=== PATIENT | female | born 1965 | race Caucasian/White ===

== ENCOUNTER → 2017-05-27 | Outpatient (REF) | payer OTHER | LOC: M LAB REF 08:51 | PROVIDERS: ATTEND Physician Assistant | DX: R10.9 Unspecified abdominal pain (principal) ==

== ENCOUNTER → 2017-05-28 | Outpatient (REF) | payer OTHER | LOC: M SFHCWAGY 15:25 | PROVIDERS: ATTEND Nurse Practitioner Women's Health | DX: N93.9 Abnormal uterine and vaginal bleeding, unspecified (principal) ==

== ENCOUNTER → 2017-05-31 | Outpatient (CLI) | payer BC ==
--- NOTE | 2017-05-31 10:55 | REP ---
PELVIC ULTRASOUND:: Real-time sonographic evaluation of the pelvis is performed utilizing transabdominal and endovaginal technique. The patient has had a prior hysterectomy. Urinary bladder measures 11.5 x 10.0 x 7.9 cm. Right ovary could not be visualized. The left ovary appears normal in size an echotexture, measuring 2.1 x 1.4 x 2.2 cm. There is blood flow seen in the left ovary with duplex Doppler evaluation with no torsion, RI 0.50. Nabothian cysts are seen in the region of the cervix, largest 1.4 cm. IMPRESSION: Status post hysterectomy. No evidence of mass or free fluid.
== END ==
LOC: M WHC 09:04
PROVIDERS: ATTEND Nurse Practitioner Women's Health
DX: N93.9 Abnormal uterine and vaginal bleeding, unspecified (principal); N94.9 Unspecified condition associated with female genital organs and menstrual cycle; Z90.711 Acquired absence of uterus with remaining cervical stump

== ENCOUNTER → 2018-05-07 | Outpatient (CLI) | payer BC, OTHER ==
[2018-05-07 12:29] LABS: ALBUMIN 3.7 GM/DL (3.2-5.2); ALKALINE PHOSPHATASE 88 U/L (45-117); ALT/SGPT 37 U/L (12-78); ANION GAP 5 MEQ/L (8-16); AST/SGOT 15 U/L (7-37); BILIRUBIN,TOTAL 0.6 MG/DL (0.2-1.0); BLOOD UREA NITROGEN 18 MG/DL (7-18); CALCIUM LEVEL 9.1 MG/DL (8.5-10.1); CARBON DIOXIDE LEVEL 30 MEQ/L (21-32); CHLORIDE LEVEL 106 MEQ/L (98-107); CREATININE FOR GFR 1.08 MG/DL (0.55-1.30); GLOMERULAR FILTRATION RATE 57.2 (>51); GLUCOSE, FASTING 99 MG/DL (70-100); POTASSIUM SERUM 4.7 MEQ/L (3.5-5.1); RHEUMATOID FACTOR QUANT < 10.0 IU/ML (<15.0); SODIUM LEVEL 141 MEQ/L (136-145); TOTAL PROTEIN 7.4 GM/DL (6.4-8.2)
[2018-05-07 13:14] LABS: ERYTHROCYTE SEDIMENTATION RATE 44 mm/hr (0-30)
[2018-05-08 14:20] LABS: ANTINUCLEAR ANTIBODIES DIRECT Negative (Negative)
== END ==
LOC: M WUC 08:33
DX: M51.37 Other intervertebral disc degeneration, lumbosacral region (principal); M50.30 Other cervical disc degeneration, unspecified cervical region
CPT/HCPCS: 80053

== ENCOUNTER → 2019-03-31 | Outpatient (REF) | LOC: M LAB LCGH 08:41 | PROVIDERS: ATTEND Nurse Practitioner Family | DX: L91.8 Other hypertrophic disorders of the skin (principal); R23.8 Other skin changes ==

== ENCOUNTER → 2019-07-30 | Outpatient (REF) | payer BC ==
[2019-07-30 13:23] LABS: INFLUENZA A AMPLIFICATION NEGATIVE (NEGATIVE); INFLUENZA B AMPLIFICATION NEGATIVE (NEGATIVE)
== END ==
LOC: M LAB REF 12:15
PROVIDERS: ATTEND Physician Assistant
DX: J10.1 Influenza due to other identified influenza virus with other respiratory manifestations (principal)

== ENCOUNTER → 2020-05-17 | Outpatient (CLI) | payer OTHER | LOC: M LABSMTC 14:07 | PROVIDERS: ATTEND Pediatrics | DX: Z11.59 Encounter for screening for other viral diseases (principal) ==

== ENCOUNTER 2021-11-07 13:01 | Emergency (ER) | payer BC, OTHER ==
[~2021-11-07] VITALS: Ht 162.6 cm; Wt 138.3 kg
[2021-11-07 17:24] LABS: BASO % 0.2 % (0.0-1.0); EOS % 0.1 % (0.0-3.0); HEMATOCRIT 44.7 % (36.0-47.0); HEMOGLOBIN 14.6 g/dl (12.0-15.5); LYMPH # 2.3 10^3/uL (1.5-5.0); LYMPH % 18.1 % (24.0-44.0); MEAN CORPUSCULAR HEMOGLOBIN 31.1 pg (27.0-33.0); MEAN CORPUSCULAR HGB CONC 32.7 g/dl (32.0-36.5); MEAN CORPUSCULAR VOLUME 95.1 fl (80.0-96.0); MONO # 0.4 10^3/uL (0.0-0.8); MONO % 2.9 % (2.0-8.0); NEUTROPHILS % 77.6 % (36.0-66.0); PLATELET COUNT, AUTOMATED 228 10^3/uL (150-450); WHITE BLOOD COUNT 12.9 10^3/uL (4.0-10.0)
[2021-11-07 18:04] LABS: ALBUMIN 3.9 GM/DL (3.2-5.2); BILIRUBIN,DIRECT 0.3 MG/DL (0.0-0.2); BILIRUBIN,TOTAL 0.9 MG/DL (0.2-1.0); FREE T4 1.11 NG/DL (0.76-1.46); THYROID STIMULATING HORMONE 1.39 uIU/ML (0.358-3.740); TOTAL PROTEIN 7.4 GM/DL (6.4-8.2)
[2021-11-07] MEDS ORDERED: FUROSEMIDE 40MG/4ML VIAL (J1940) IV ONE (18:25)
[2021-11-07] MEDS ORDERED: CARVedilol 12.5 MG TAB PO ONE (18:25)
[2021-11-07] MEDS ORDERED: PERCOCET 5MG/325MG TAB PO ONE (18:30)
[2021-11-07 18:45] VITALS: BP 184/79
[2021-11-07] MEDS ORDERED: ACETAMINOPHEN TAB 650MG DOSE (2X325MG) PO ONE (20:40)
[2021-11-07 20:46] VITALS: BP 164/86
[2021-11-07] MEDS ORDERED: CORE12.5 PO (21:00)
[2021-11-07] MEDS ORDERED: CHLO125TA PO (21:01)
[2021-11-07] MEDS ORDERED: SPIR-10 PO (21:02)
[2021-11-07] MEDS ORDERED: PERC5TAB12 PO (21:02)
== END 2021-11-07 21:27 | disposition home or self-care (01) ==
LOC: M ED 13:01
DX: I10 Essential (primary) hypertension (principal); D31.91 Benign neoplasm of unspecified part of right eye; Z88.0 Allergy status to penicillin; Z79.52 Long term (current) use of systemic steroids; Z79.83 Long term (current) use of bisphosphonates
CPT/HCPCS: 71045; 80047; 80076; 83690; 83880; 84439; 84443; 84484; 85025; 93005; 93041; 94760; 96374; 99285; J1940

== ENCOUNTER → 2021-12-25 | Outpatient (CLI) | payer BC, OTHER ==
[~2021-12-25] MED LIST: CHLO125TA PO; CORE12.5 PO; ISOVUE-370 76% 100ML VIAL As Ordered ONE; PERC5TAB12 PO; SPIR-10 PO
== END ==
LOC: M RAD 08:15
PROVIDERS: ATTEND Internal Medicine Cardiovascular Disease
DX: R91.1 Solitary pulmonary nodule (principal); R06.02 Shortness of breath
CPT/HCPCS: 71275; Q9967

== ENCOUNTER → 2021-12-26 | Outpatient (CLI) | payer BC, OTHER ==
[~2021-12-26] MED LIST changes: -ISOVUE-370 76% 100ML VIAL As Ordered ONE
== END ==
LOC: M CARPUL 14:29
PROVIDERS: ATTEND Internal Medicine Cardiovascular Disease
DX: R06.02 Shortness of breath (principal)

== ENCOUNTER → 2022-04-03 | Outpatient (REF) | LOC: M PLAIMG 14:55 | PROVIDERS: ATTEND Internal Medicine | DX: M25.512 Pain in left shoulder (principal) ==

== ENCOUNTER 2022-06-20 17:19 | Inpatient (IN) | payer BC, OTHER ==
[~2022-06-20] VITALS: Ht 162.6 cm; Wt 140.5 kg
[2022-06-20] MEDS ORDERED: FOLI1TAB11 (17:40)
[2022-06-20] MEDS ORDERED: NITR100C2 (17:40)
[2022-06-20] MEDS ORDERED: HYDR-3490 (17:40)
[2022-06-20] MEDS ORDERED: METH2.5T48 (17:40)
[2022-06-20] MEDS ORDERED: ALLO100T (17:40)
[2022-06-20] MEDS ORDERED: OMEP40CA5 (17:40)
[2022-06-20] MEDS ORDERED: FLUC100T3 (17:40)
[2022-06-20] MEDS ORDERED: TRAM50TA2 (17:40)
[2022-06-20] MEDS ORDERED: FLUTISP (17:40)
[2022-06-20] MEDS ORDERED: TRAZ-252 (17:40)
[2022-06-20] MEDS ORDERED: GABA-1171 (17:40)
[2022-06-20] MEDS ORDERED: FURO20TA2 (17:40)
[2022-06-20] MEDS ORDERED: ERGO500029 (17:40)
[2022-06-20] MEDS ORDERED: PRED20TA (17:40)
[2022-06-20] MEDS ORDERED: ONDA4TAB6 (17:40)
[2022-06-20] MEDS ORDERED: AMLO-360 (17:40)
[2022-06-20] MEDS ORDERED: NYST-38 (17:40)
[2022-06-20] MEDS ORDERED: LEVOTAB10 (17:40)
[2022-06-20] MEDS ORDERED: FAMO40TA3 (17:40)
[2022-06-20] MEDS ORDERED: MYRB25TA (17:40)
[2022-06-20 18:50] LABS: RSV AMPLIFICATION NEGATIVE (NEGATIVE)
[2022-06-20] MEDS ORDERED: LEVEMIR (INSULIN DETEMIR) 1 UNITS/0.01ML SC SCH (21:00)
[2022-06-20 22:08] LABS: BASO % 0.2 % (0.0-1.0); EOS % 0.2 % (0.0-3.0); HEMATOCRIT 32.7 % (36.0-47.0); HEMOGLOBIN 10.5 g/dl (12.0-15.5); LYMPH # 1.5 10^3/uL (1.5-5.0); LYMPH % 14.5 % (24.0-44.0); MEAN CORPUSCULAR HEMOGLOBIN 32.6 pg (27.0-33.0); MEAN CORPUSCULAR HGB CONC 32.1 g/dl (32.0-36.5); MEAN CORPUSCULAR VOLUME 101.6 fl (80.0-96.0); MONO # 0.5 10^3/uL (0.0-0.8); MONO % 4.9 % (2.0-8.0); NEUTROPHILS % 78.3 % (36.0-66.0); PLATELET COUNT, AUTOMATED 178 10^3/uL (150-450); RED BLOOD COUNT 3.22 10^6/uL (4.00-5.40); WHITE BLOOD COUNT 10.2 10^3/uL (4.0-10.0)
[2022-06-20 23:15] LABS: BLOOD UREA NITROGEN 65 MG/DL (9-23); CALCIUM LEVEL 9.5 MG/DL (8.5-10.1); CARBON DIOXIDE LEVEL 29 MMOL/L (20-31); CHLORIDE LEVEL 91 MMOL/L (98-107); CREATININE FOR GFR 2.65 MG/DL (0.55-1.30); GLUCOSE, FASTING 501 MG/DL (60-100); POTASSIUM SERUM 4.9 MMOL/L (3.5-5.1); SODIUM LEVEL 131 MMOL/L (136-145)
[2022-06-20] MEDS ORDERED: NS 1,000 ML IV ONE (23:35)
[2022-06-20 23:59] LABS: HEMOGLOBIN A1c 11.7 % (4.0-6.0)
[2022-06-21 00:02] LABS: ALBUMIN 3.4 G/DL (3.2-5.2); ALKALINE PHOSPHATASE 110 U/L (46-116); ALT/SGPT 34 U/L (7.0-40); AST/SGOT 15 U/L (<34); BILIRUBIN,DIRECT 0.1 MG/DL (<0.4); BILIRUBIN,TOTAL 0.5 MG/DL (0.3-1.2); TOTAL PROTEIN 6.3 G/DL (5.7-8.2)
[2022-06-21] MEDS ORDERED: HumuLIN R (REGULAR) INSULIN (NovoLIN R) **100U/ML** PER UNIT IV ONE (00:10)
[2022-06-21] MEDS ORDERED: LIDOCAINE 2% 5ML JELLY UROJET TOP ONE (00:15)
[2022-06-21] MEDS: NS 1,000 ML IV SCH ×3 (00:25→09:53)
[2022-06-21 01:09] LABS: CK-MB VALUE MASS < 1.0 NG/ML (<3.6)
[2022-06-21 01:15] LABS: CPK CREATINE PHOSPHOKINASE 107 U/L (34-145); MB/CK RELATIVE INDEX 0.93 (< OR =4)
[2022-06-21] MEDS ORDERED: INSULIN LISPRO (NovoLOG) PER UNIT SC STA (02:08)
[2022-06-21] MEDS ORDERED: GLUCAGON INJ 1MG VIAL SC PRN (02:35)
[2022-06-21] MEDS ORDERED: DEXTROSE 50% 50ML SYRINGE IV PRN (02:35)
[2022-06-21] MEDS ORDERED: GLUCOSE 4GM CHEW TABLET PO PRN (02:35)
[2022-06-21] MEDS ORDERED: PENC1CR TOP (03:07)
[2022-06-21] MEDS ORDERED: LEVOTAB10 PO (03:07)
[2022-06-21] MEDS ORDERED: FLUT15.820 (03:07)
[2022-06-21] MEDS ORDERED: NYST-13 TOP (03:07)
[2022-06-21] MEDS ORDERED: FOLI1TAB11 PO (03:07)
[2022-06-21] MEDS ORDERED: OMEP40CA5 PO (03:07)
[2022-06-21] MEDS ORDERED: PRED20TA PO (03:07)
[2022-06-21] MEDS ORDERED: CARV12.5 PO (03:07)
[2022-06-21] MEDS ORDERED: TUMS500C PO (03:07)
[2022-06-21] MEDS ORDERED: FURO20TA2 PO (03:07)
[2022-06-21] MEDS ORDERED: SPIR-10 PO (03:07)
[2022-06-21] MEDS ORDERED: HYDR-3490 PO (03:07)
[2022-06-21] MEDS ORDERED: NYST-38 SSP (03:07)
[2022-06-21] MEDS ORDERED: MYRB25TA PO (03:07)
[2022-06-21] MEDS ORDERED: METH2.5T48 PO (03:07)
[2022-06-21] MEDS ORDERED: AMLO-360 PO (03:07)
[2022-06-21] MEDS ORDERED: TRAM50TA2 PO (03:07)
[2022-06-21] MEDS ORDERED: ONDA4TAB6 PO (03:07)
[2022-06-21] MEDS ORDERED: FAMO40TA3 PO (03:07)
[2022-06-21] MEDS ORDERED: ERGO500029 PO (03:07)
[2022-06-21] MEDS ORDERED: SIME80TA16 PO (03:07)
[2022-06-21] MEDS ORDERED: VITA1TAB61 PO (03:07)
[2022-06-21] MEDS ORDERED: MACR100C43 PO (03:07)
[2022-06-21] MEDS ORDERED: BENZ200C70 PO (03:07)
[2022-06-21] MEDS ORDERED: ALLO100T PO (03:07)
[2022-06-21] MEDS ORDERED: GABA-1171 PO (03:07)
[2022-06-21] MEDS ORDERED: TRAZ-252 PO (03:07)
[2022-06-21] MEDS ORDERED: ACET-897 PO (03:08)
[2022-06-21] MEDS ORDERED: HOME MED LIST COMPLETE! XX SCH (03:10)
[2022-06-21] MEDS ORDERED: ONDANSETRON 4MG ORAL DISINTEGRATING TAB PO PRN (04:05)
[2022-06-21] MEDS ORDERED: NYSTATIN CREAM 15GM TOP PRN (04:05)
[2022-06-21] MEDS ORDERED: ACETAMINOPHEN 500 MG TAB PO PRN (04:05)
[2022-06-21] MEDS ORDERED: SIMETHICONE 80MG CHEW TAB PO PRN (04:05)
[2022-06-21] MEDS ORDERED: PENCICLOVIR 1% CREAM 5GM TOP PRN (04:05)
[2022-06-21] MEDS: traMADol 50 MG TAB PO PRN ×2 (05:41→21:19)
[2022-06-21] MEDS: HEPARIN SOD (PORCINE) 5000UNITS/ML 1ML VIAL/SYRINGE SC SCH ×3 (05:41→21:19)
[2022-06-21 07:31] LABS: ALBUMIN 3.2 G/DL (3.2-5.2); BILIRUBIN,TOTAL 0.5 MG/DL (0.3-1.2); CALCIUM LEVEL 9.1 MG/DL (8.5-10.1); CREATININE FOR GFR 1.89 MG/DL (0.55-1.30); GLOMERULAR FILTRATION RATE 29.5 (>51); POTASSIUM SERUM 4.7 MMOL/L (3.5-5.1); TOTAL PROTEIN 6.2 G/DL (5.7-8.2)
[2022-06-21 08:00] VITALS: BP 116/69
[2022-06-21] MEDS: NYSTATIN 500,000U/5ML SUSP UDC SSP SCH ×2 (09:00→21:17)
[2022-06-21] MEDS ORDERED: SPIRONOLACTONE 12.5MG PER 1/2 TABLET PO SCH (09:00)
[2022-06-21] MEDS: predniSONE 20 MG TAB PO SCH (09:43)
[2022-06-21] MEDS: CARVedilol 12.5 MG TAB PO SCH ×2 (09:44→22:39)
[2022-06-21] MEDS: FAMOTIDINE 20 MG TAB PO SCH (09:45)
[2022-06-21] MEDS: CALCIUM CARBONATE 500 MG CHEW U/D PO SCH ×4 (09:46→21:17)
[2022-06-21] MEDS: INSULIN LISPRO (NovoLOG) PER UNIT SC SCH ×4 (09:49→21:20)
[2022-06-21] MEDS: GABAPENTIN 100 MG CAP PO SCH ×3 (09:53→21:17)
[2022-06-21] MEDS ORDERED: ONDANSETRON 4MG 2ML VIAL IV PRN (10:10)
[2022-06-21] MEDS ORDERED: FUROSEMIDE 100MG/10ML VIAL IV ONE (11:15)
[2022-06-21] MEDS: LEVEMIR (INSULIN DETEMIR) 1 UNITS/0.01ML SC SCH ×2 (11:52→21:20)
[2022-06-21] MEDS ORDERED: METHOTREXATE 2.5 MG TAB (J8610 PER 2.5MG) PO SCH (12:00)
[2022-06-21 14:00] VITALS: BP 123/76
[2022-06-21 17:20] VITALS: BP 126/71
[2022-06-21 20:40] VITALS: BP 105/66
[2022-06-21] MEDS: allopurinoL 100 MG TAB PO SCH (21:17)
[2022-06-21] MEDS: traZODone 50 MG TAB PO SCH (21:17)
[2022-06-21] MEDS: FLUTICASONE PROP 0.05% NASAL SPRAY 16 GM (FLONASE) NARES SCH (23:19)
[2022-06-21] MEDS: OMEPRAZOLE 20MG CAP PO SCH (23:19)
[2022-06-21] MEDS: ALBUTEROL SULFATE 2.5MG/0.5ML INH NEB SOLN NEB SCH (23:26)
[2022-06-22 05:58] VITALS: BP 134/77
[2022-06-22] MEDS: HEPARIN SOD (PORCINE) 5000UNITS/ML 1ML VIAL/SYRINGE SC SCH ×3 (06:28→22:07)
[2022-06-22 06:50] LABS: HEMATOCRIT 32.9 % (36.0-47.0); HEMOGLOBIN 10.7 g/dl (12.0-15.5); MEAN CORPUSCULAR HEMOGLOBIN 33.1 pg (27.0-33.0); MEAN CORPUSCULAR HGB CONC 32.5 g/dl (32.0-36.5); MEAN CORPUSCULAR VOLUME 101.9 fl (80.0-96.0); PLATELET COUNT, AUTOMATED 181 10^3/uL (150-450); RED BLOOD COUNT 3.23 10^6/uL (4.00-5.40); WHITE BLOOD COUNT 8.5 10^3/uL (4.0-10.0)
[2022-06-22] MEDS: ALBUTEROL SULFATE 2.5MG/0.5ML INH NEB SOLN NEB SCH ×2 (07:11)
[2022-06-22 07:19] LABS: ALBUMIN 3.3 G/DL (3.2-5.2); BILIRUBIN,TOTAL 0.5 MG/DL (0.3-1.2); CALCIUM LEVEL 9.9 MG/DL (8.5-10.1); CREATININE FOR GFR 1.45 MG/DL (0.55-1.30); GLOMERULAR FILTRATION RATE 40.1 (>51); POTASSIUM SERUM 4.1 MMOL/L (3.5-5.1); TOTAL PROTEIN 6.4 G/DL (5.7-8.2)
[2022-06-22] MEDS: LEVEMIR (INSULIN DETEMIR) 1 UNITS/0.01ML SC SCH ×2 (08:29→22:03)
[2022-06-22] MEDS: INSULIN LISPRO (NovoLOG) PER UNIT SC SCH ×4 (08:29→22:02)
[2022-06-22] MEDS: NYSTATIN 500,000U/5ML SUSP UDC SSP SCH ×2 (08:29→22:02)
[2022-06-22] MEDS: FAMOTIDINE 20 MG TAB PO SCH (08:30)
[2022-06-22] MEDS: CALCIUM CARBONATE 500 MG CHEW U/D PO SCH ×4 (08:30→22:00)
[2022-06-22] MEDS: predniSONE 20 MG TAB PO SCH (08:31)
[2022-06-22] MEDS: GABAPENTIN 100 MG CAP PO SCH ×3 (08:32→22:01)
[2022-06-22] MEDS: CARVedilol 12.5 MG TAB PO SCH ×2 (08:33→22:01)
[2022-06-22] MEDS: FOLIC ACID 1MG TAB PO SCH (08:33)
[2022-06-22] MEDS: OMEPRAZOLE 20MG CAP PO SCH ×2 (08:33→22:00)
[2022-06-22] MEDS: FLUTICASONE PROP 0.05% NASAL SPRAY 16 GM (FLONASE) NARES SCH ×2 (08:35→22:04)
[2022-06-22] MEDS ORDERED: METHOTREXATE 2.5 MG TAB (J8610 PER 2.5MG) PO SCH (09:00)
[2022-06-22] MEDS ORDERED: ALBUTEROL SULFATE 2.5MG/0.5ML INH NEB SOLN NEB PRN (09:10)
[2022-06-22] MEDS: traMADol 50 MG TAB PO PRN (12:35)
[2022-06-22 14:00] VITALS: BP 136/61
[2022-06-22] MEDS: COMBIVENT RESPIMAT 100-20MCG INHALER 4GM INH SCH ×2 (15:27→19:50)
[2022-06-22 20:00] VITALS: BP 129/63
[2022-06-22] MEDS: allopurinoL 100 MG TAB PO SCH (22:00)
[2022-06-22] MEDS: traZODone 50 MG TAB PO SCH (22:01)
[2022-06-23] MEDS ORDERED: SENOKOT S TAB PO PRN (00:50)
[2022-06-23] MEDS: COMBIVENT RESPIMAT 100-20MCG INHALER 4GM INH SCH ×3 (01:00→13:22)
[2022-06-23] MEDS: HEPARIN SOD (PORCINE) 5000UNITS/ML 1ML VIAL/SYRINGE SC SCH ×2 (05:43→14:37)
[2022-06-23] MEDS: BENZONATATE 100MG CAPSULE PO PRN ×2 (05:43→14:36)
[2022-06-23] MEDS: traMADol 50 MG TAB PO PRN (05:44)
[2022-06-23 06:00] VITALS: BP 132/85
[2022-06-23 07:12] LABS: HEMATOCRIT 32.2 % (36.0-47.0); HEMOGLOBIN 10.2 g/dl (12.0-15.5); MEAN CORPUSCULAR HEMOGLOBIN 32.3 pg (27.0-33.0); MEAN CORPUSCULAR HGB CONC 31.7 g/dl (32.0-36.5); MEAN CORPUSCULAR VOLUME 101.9 fl (80.0-96.0); PLATELET COUNT, AUTOMATED 172 10^3/uL (150-450); RED BLOOD COUNT 3.16 10^6/uL (4.00-5.40); WHITE BLOOD COUNT 7.7 10^3/uL (4.0-10.0)
[2022-06-23 07:38] LABS: BILIRUBIN,TOTAL 0.5 MG/DL (0.3-1.2); CALCIUM LEVEL 9.5 MG/DL (8.5-10.1); CREATININE FOR GFR 1.25 MG/DL (0.55-1.30); GLOMERULAR FILTRATION RATE 47.5 (>51); TOTAL PROTEIN 6.1 G/DL (5.7-8.2)
[2022-06-23 08:00] VITALS: BP 118/71
[2022-06-23] MEDS: CALCIUM CARBONATE 500 MG CHEW U/D PO SCH ×2 (08:57→12:13)
[2022-06-23] MEDS: GABAPENTIN 100 MG CAP PO SCH ×2 (08:58→15:37)
[2022-06-23] MEDS: OMEPRAZOLE 20MG CAP PO SCH (08:58)
[2022-06-23] MEDS: FAMOTIDINE 20 MG TAB PO SCH (08:58)
[2022-06-23 08:59] VITALS: BP 118/71
[2022-06-23] MEDS: predniSONE 20 MG TAB PO SCH (08:59)
[2022-06-23] MEDS: FOLIC ACID 1MG TAB PO SCH (08:59)
[2022-06-23] MEDS: CARVedilol 12.5 MG TAB PO SCH (08:59)
[2022-06-23] MEDS ORDERED: DOCUSATE SODIUM 100MG CAPSULE PO SCH (09:00)
[2022-06-23] MEDS: FLUTICASONE PROP 0.05% NASAL SPRAY 16 GM (FLONASE) NARES SCH (09:00)
[2022-06-23] MEDS ORDERED: MIRALAX *UNIT DOSE* 17GM PACKET PO SCH (09:00)
[2022-06-23] MEDS ORDERED: LEVEMIR (INSULIN DETEMIR) 1 UNITS/0.01ML SC SCH ×2 (09:00→21:00)
[2022-06-23] MEDS: NYSTATIN 500,000U/5ML SUSP UDC SSP SCH (09:00)
[2022-06-23] MEDS: INSULIN LISPRO (NovoLOG) PER UNIT SC SCH ×3 (09:02→17:07)
[2022-06-23] MEDS ORDERED: INSU100I48 SQ ×2 (11:08→12:06)
[2022-06-23] MEDS ORDERED: GLUC1TES2 XX (11:08)
[2022-06-23] MEDS ORDERED: PEN1MIS22 SC (11:08)
[2022-06-23] MEDS ORDERED: BLOOKIT21 XX (11:08)
[2022-06-23] MEDS ORDERED: LANC30MI XX (11:08)
[2022-06-23] MEDS ORDERED: ALCOPAD25 TOP (11:08)
[2022-06-23 12:00] VITALS: BP 116/72
[2022-06-23] MEDS ORDERED: GABA-282 PO (12:06)
[2022-06-23] MEDS ORDERED: COMBAER6 INH (12:06)
[2022-06-23] MEDS ORDERED: ADME100I2 SC (12:06)
[2022-06-23] MEDS ORDERED: VITAMIN D 50,000 UNITS CAPSULE (ERGOCALCIFEROL 1.25MG) PO SCH (13:00)
[2022-06-23 14:00] VITALS: BP 116/72
[2022-06-26] MEDS ORDERED: GABAPENTIN 300 MG CAP PO SCH (09:00)
== END 2022-06-23 18:26 | disposition home or self-care (01) | DRG 469 ==
LOC: M ED 17:19 → M ED INP 06-21 02:06 → M MSPAV 06-21 17:17
PROVIDERS: ADMIT Family Medicine; ATTEND Internal Medicine Nephrology
PROC: B246ZZZ Ultrasonography of Right and Left Heart (ICD-10-PCS; principal; 2022-06-23)
DX: N17.9 Acute kidney failure, unspecified (principal); M31.30 Wegener's granulomatosis without renal involvement; E11.40 Type 2 diabetes mellitus with diabetic neuropathy, unspecified; I11.0 Hypertensive heart disease with heart failure; I50.9 Heart failure, unspecified; E11.65 Type 2 diabetes mellitus with hyperglycemia; E66.01 Morbid (severe) obesity due to excess calories; Z68.43 Body mass index [BMI] 50.0-59.9, adult; I10 Essential (primary) hypertension; J45.909 Unspecified asthma, uncomplicated; J32.9 Chronic sinusitis, unspecified; N39.41 Urge incontinence; H46.9 Unspecified optic neuritis; D64.9 Anemia, unspecified; M19.90 Unspecified osteoarthritis, unspecified site; M10.9 Gout, unspecified; K21.9 Gastro-esophageal reflux disease without esophagitis; R91.1 Solitary pulmonary nodule; H91.90 Unspecified hearing loss, unspecified ear; G47.33 Obstructive sleep apnea (adult) (pediatric); Z90.49 Acquired absence of other specified parts of digestive tract; Z90.79 Acquired absence of other genital organ(s); Z87.891 Personal history of nicotine dependence; Z20.822 Contact with and (suspected) exposure to COVID-19; Z79.52 Long term (current) use of systemic steroids; Z79.899 Other long term (current) drug therapy; Z88.1 Allergy status to other antibiotic agents; B96.20 Unspecified Escherichia coli [E. coli] as the cause of diseases classified elsewhere

== ENCOUNTER → 2022-07-09 | Outpatient (CLI) | payer BC, OTHER ==
[~2022-07-09] MED LIST changes: +ACET-897 PO; +ADME100I2 SC; +ALCOPAD25 TOP; +ALLO100T; +ALLO100T PO; +AMLO-360; +AMLO-360 PO; +BENZ200C70 PO; +BLOOKIT21 XX; +CARV12.5 PO; +COMBAER6 INH; +ERGO500029; +ERGO500029 PO; +FAMO40TA3; +FAMO40TA3 PO; +FLUC100T3; +FLUT15.820; +FLUTISP; +FOLI1TAB11; +FOLI1TAB11 PO; +FURO20TA2; +FURO20TA2 PO; +GABA-1171; +GABA-1171 PO; +GABA-282 PO; +GLUC1TES2 XX; +HYDR-3490; +HYDR-3490 PO; +INSU100I48 SQ; +LANC30MI XX; +LEVOTAB10; +LEVOTAB10 PO; +MACR100C43 PO; +METH2.5T48; +METH2.5T48 PO; +MYRB25TA; +MYRB25TA PO; +NITR100C2; +NYST-13 TOP; +NYST-38; +NYST-38 SSP; +OMEP40CA5; +OMEP40CA5 PO; +ONDA4TAB6; +ONDA4TAB6 PO; +PEN1MIS22 SC; +PENC1CR TOP; +PRED20TA; +PRED20TA PO; +SIME80TA16 PO; +TRAM50TA2; +TRAM50TA2 PO; +TRAZ-252; +TRAZ-252 PO; +TUMS500C PO; +VITA1TAB61 PO
== END ==
LOC: M PLAIMG 12:56
PROVIDERS: ATTEND Nurse Practitioner Adult Health
DX: R91.8 Other nonspecific abnormal finding of lung field (principal)

== ENCOUNTER → 2022-09-05 | Outpatient (REF) | payer OTHER ==
[2022-09-05 18:17] LABS: CREATININE, URINE 22.4 MG/DL; MAU/CREAT RATIO 53.5 MCG/MG (0.0-30.0)
== END ==
LOC: M LAB REF 16:54
PROVIDERS: ATTEND Nurse Practitioner Family
DX: E11.65 Type 2 diabetes mellitus with hyperglycemia (principal)

== ENCOUNTER → 2022-11-15 | Outpatient (CLI) | payer BC, OTHER ==
[~2022-11-15] MED LIST changes: +FLUT50SP17; -FLUTISP
== END ==
LOC: M PLAIMG 08:56
PROVIDERS: ATTEND Nurse Practitioner Adult Health
DX: J98.11 Atelectasis (principal); R91.8 Other nonspecific abnormal finding of lung field

== ENCOUNTER 2023-09-17 21:19 | Inpatient (IN) | payer BC, OTHER ==
[~2023-09-17] VITALS: Ht 162.6 cm; Wt 137.0 kg
[~2023-09-17 21:19] MED LIST changes: -FLUT15.820; +FLUT15.820 NARES; -FLUT50SP17; +FLUTISP
[2023-09-17 22:39] LABS: HEMATOCRIT 31.2 % (36.0-47.0); HEMOGLOBIN 10.5 g/dl (12.0-15.5); MEAN CORPUSCULAR HGB CONC 33.7 g/dl (32.0-36.5); RED BLOOD COUNT 3.09 10^6/uL (4.00-5.40); WHITE BLOOD COUNT 1.4 10^3/uL (4.0-10.0)
[2023-09-17 23:03] LABS: PLATELET COUNT, AUTOMATED 95 10^3/uL (150-450)
[2023-09-17 23:07] LABS: LIPASE 25 U/L (12-53)
[2023-09-17 23:09] LABS: ALBUMIN 3.6 G/DL (3.2-5.2); ALKALINE PHOSPHATASE 170 U/L (46-116); ALT/SGPT 41 U/L (7.0-40); AST/SGOT 66 U/L (<34); BILIRUBIN,DIRECT 0.4 MG/DL (<0.4); BILIRUBIN,TOTAL 1.1 MG/DL (0.3-1.2); BLOOD UREA NITROGEN 19 MG/DL (9-23); CALCIUM LEVEL 8.9 MG/DL (8.5-10.1); CARBON DIOXIDE LEVEL 25 MMOL/L (20-31); CHLORIDE LEVEL 102 MMOL/L (98-107); CREATININE FOR GFR 1.14 MG/DL (0.55-1.30); GLOMERULAR FILTRATION RATE 52.5 (>51); GLUCOSE, FASTING 137 MG/DL (60-100); POTASSIUM SERUM 3.6 MMOL/L (3.5-5.1); SODIUM LEVEL 135 MMOL/L (136-145); TOTAL PROTEIN 6.6 G/DL (5.7-8.2)
[2023-09-17 23:10] LABS: ATYPICAL LYMPH 40 % (0-5); LYMPHOCYTES 43 % (16-44); MONOCYTES 3 % (0-5); NEUTROPHILS 13 % (28-66); PLASMA CELL 1 % (0-0); PLATELET ESTIMATE DECREASED (NORMAL)
[2023-09-17 23:11] LABS: ANISOCYTOSIS 1+
[2023-09-17 23:31] LABS: CK-MB VALUE MASS < 1.0 NG/ML (<3.6)
[2023-09-17 23:32] LABS: CPK CREATINE PHOSPHOKINASE 103 U/L (34-145); MB/CK RELATIVE INDEX 0.97 (< OR =4)
[2023-09-17] MEDS: ACETAMINOPHEN TAB 650MG DOSE (2X325MG) PO ONE (23:42)
[2023-09-17] MEDS: NS 1,000 ML IV ONE (23:43)
[2023-09-17] MEDS: MORPHINE 4 MG/ML 1ML VIAL IV ONE (23:44)
[2023-09-17] MEDS: ONDANSETRON 4MG 2ML VIAL IV ONE (23:45)
[2023-09-18] VITALS (9 sets, daily range): BP systolic 110–177; BP diastolic 52–80; TEMP 97.6–104.9; O2SAT 94–100
[2023-09-18] MEDS ORDERED: VANCOMYCIN HCL 1,000 MG in IV FLUID PLACE HOLDER 1 EA IV ONE (00:15)
[2023-09-18] MEDS ORDERED: AZTREONAM 1 GM in D5W MINI-BAG PLUS 50 ML IV SCH (00:15)
[2023-09-18] MEDS ORDERED: ISOVUE-370 76% 100ML VIAL As Ordered ONE (00:23)
[2023-09-18] MEDS ORDERED: VANCOMYCIN HCL 1,000 MG, VIAL MATE ADAPTER 1 EACH in D5W 250 ML IV SCH ×2 (00:30→18:00)
[2023-09-18] MEDS ORDERED: VANCOMYCIN HCL 1,000 MG, VIAL MATE ADAPTER 1 EACH in D5W 250 ML IV ONE (00:30)
[2023-09-18 00:34] LABS: CK-MB VALUE MASS < 1.0 NG/ML (<3.6); CPK CREATINE PHOSPHOKINASE 122 U/L (34-145); MB/CK RELATIVE INDEX 0.81 (< OR =4)
[2023-09-18] MEDS ORDERED: KETOROLAC 30 MG/ML 1ML VIAL As Ordered ONE (01:54)
[2023-09-18] MEDS: KETOROLAC 30 MG/ML 1ML VIAL IV ONE (01:55)
[2023-09-18] MEDS: AZTREONAM 1 GM in D5W MINI-BAG PLUS 50 ML IV ONE (01:56)
[2023-09-18] MEDS: VANCOMYCIN HCL 1,000 MG, VIAL MATE ADAPTER 1 EACH in D5W 250 ML IV ONE ×2 (02:58→04:09)
[2023-09-18] MEDS ORDERED: GABA600T4 PO ×2 (04:34)
[2023-09-18] MEDS ORDERED: MYRB50TA PO (04:34)
[2023-09-18] MEDS ORDERED: FURO40TA2 PO (04:34)
[2023-09-18] MEDS ORDERED: COMBAER6 INH (04:35)
[2023-09-18] MEDS ORDERED: HOME MED LIST COMPLETE! XX SCH (04:35)
[2023-09-18] MEDS ORDERED: IBUP-1764 PO (04:51)
[2023-09-18] MEDS ORDERED: MULTCHW12 PO (04:51)
[2023-09-18] MEDS ORDERED: BACT800T5 PO (04:51)
[2023-09-18] MEDS ORDERED: DULO30CA9 PO (04:51)
[2023-09-18] MEDS ORDERED: VITA100018 PO (04:51)
[2023-09-18] MEDS ORDERED: FARX1TAB5 PO (04:51)
[2023-09-18] MEDS ORDERED: ROSU20TA61 PO (04:51)
[2023-09-18] MEDS ORDERED: TURM1TAB PO (04:51)
[2023-09-18] MEDS ORDERED: TOPI-21 PO (04:51)
[2023-09-18] MEDS ORDERED: AZAT50TA37 PO (04:51)
[2023-09-18] MEDS: ACETAMINOPHEN TAB 650MG DOSE (2X325MG) PO PRN (06:45)
[2023-09-18] MEDS: HEPARIN SOD (PORCINE) 5000UNITS/ML 1ML VIAL/SYRINGE SC SCH (06:46)
[2023-09-18] MEDS: IBUPROFEN 800 MG TAB PO ONE (08:40)
[2023-09-18] MEDS: AZTREONAM 2 GM in D5W MINI-BAG PLUS 50 ML IV SCH (08:40)
[2023-09-18 14:17] LABS: CALCIUM LEVEL 8.8 MG/DL (8.5-10.1); CREATININE FOR GFR 1.46 MG/DL (0.55-1.30); GLOMERULAR FILTRATION RATE 39.5 (>51); POTASSIUM SERUM 3.3 MMOL/L (3.5-5.1)
[2023-09-18 14:45] LABS: AMORPHOUS SEDIMENT SMALL (NEGATIVE); APPEARANCE, URINE CLOUDY (CLEAR); BACTERIA, URINE AUTO 1+ (NEGATIVE); BILIRUBIN, URINE AUTO NEGATIVE (NEGATIVE); BLOOD, URINE BLOOD NEGATIVE (NEGATIVE); COLOR, URINE AMBER (YELLOW); GLUCOSE, URINE (UA) AUTO 2+ mg/dL (NEGATIVE); KETONE, URINE AUTO NEGATIVE (NEGATIVE); LEUKOCYTE ESTERASE, URINE AUTO NEGATIVE (NEGATIVE); NITRITE, URINE AUTO NEGATIVE (NEGATIVE); PROTEIN, URINE AUTO 2+ mg/dL (NEGATIVE); RBC, URINE AUTO 1 /HPF (0-3); SPECIFIC GRAVITY URINE AUTO 1.051 (1.002-1.035); SQUAMOUS EPITHELIAL CELL UR AU 1 /HPF (0-6); WBC, URINE AUTO 3 /HPF (0-3)
[2023-09-18 15:04] LABS: INR 1.06; PROTHROMBIN TIME 13.5 SECONDS (12.5-14.5)
[2023-09-18 15:46] LABS: VANCOMYCIN RANDOM 16.3 UG/ML
[2023-09-18] MEDS ORDERED: VANCOMYCIN HCL 750 MG, VIAL MATE ADAPTER 1 EACH in D5W 250 ML IV SCH (16:00)
[2023-09-18] MEDS: cefTRIAXone SOD 2 GM in D5W MINI-BAG PLUS 50 ML IV SCH (16:13)
[2023-09-18 16:35] LABS: APPEARANCE, CSF CLEAR (CLEAR); COLOR, CSF COLORLESS (COLORLESS); CSF TUBE# CELL CNT TUBE 1
[2023-09-18 16:40] LABS: APPEARANCE, CSF CLEAR (CLEAR); COLOR, CSF COLORLESS (COLORLESS)
[2023-09-18 16:41] LABS: CSF TUBE# CELL CNT TUBE 3
[2023-09-18 16:51] LABS: CSF TUBE# TP TUBE 2; TOTAL PROTEIN,CSF 37.3 MG/DL (15-45)
[2023-09-18 16:54] LABS: CSF TUBE# GLU TUBE 2
[2023-09-18] MEDS ORDERED: D5W/0.9% SODIUM CHLORIDE 1,000 ML IV SCH (18:05)
[2023-09-18] MEDS: DOXYCYCLINE HYCLATE 100 MG in D5W MINI-BAG PLUS 100 ML IV SCH (18:32)
[2023-09-18] MEDS: VANCOMYCIN HCL 750 MG, VIAL MATE ADAPTER 1 EACH in D5W 250 ML IV ONE (20:35)
[2023-09-18] MEDS: GABAPENTIN 300 MG CAP PO SCH (22:01)
[2023-09-18] MEDS: FAMOTIDINE 20 MG TAB PO SCH (22:01)
[2023-09-18] MEDS: CARVedilol 12.5 MG TAB PO SCH (22:01)
[2023-09-18] MEDS: TOPIRAMATE (TopAMAX) 25 MG TAB PO SCH (22:02)
[2023-09-19] VITALS (21 sets, daily range): BP systolic 105–149; BP diastolic 54–65; TEMP 99.5–103.8; O2SAT 96–100
[2023-09-19] MEDS ORDERED: VANCOMYCIN INTERMITTENT/PULSE DOSING BY CLINICAL PHARMACIST PER DOSING PROTOCOL XX SCH (06:00)
[2023-09-19 06:22] LABS: HEMATOCRIT 26.1 % (36.0-47.0); LYMPH # 0.7 10^3/uL (1.5-5.0); LYMPH % 78.4 % (24.0-44.0); MEAN CORPUSCULAR HEMOGLOBIN 34.2 pg (27.0-33.0); MEAN CORPUSCULAR HGB CONC 34.5 g/dl (32.0-36.5); MEAN CORPUSCULAR VOLUME 99.2 fl (80.0-96.0); MONO # 0.1 10^3/uL (0.0-0.8); MONO % 12.5 % (2.0-8.0); RED BLOOD COUNT 2.63 10^6/uL (4.00-5.40)
[2023-09-19 07:14] LABS: ALBUMIN 2.8 G/DL (3.2-5.2); BILIRUBIN,TOTAL 0.4 MG/DL (0.3-1.2); CALCIUM LEVEL 8.2 MG/DL (8.5-10.1); CREATININE FOR GFR 1.41 MG/DL (0.55-1.30); GLOMERULAR FILTRATION RATE 41.1 (>51); POTASSIUM SERUM 3.6 MMOL/L (3.5-5.1); TOTAL PROTEIN 5.7 G/DL (5.7-8.2)
[2023-09-19 07:21] LABS: NEUTROPHILS # 0.1 10^3/uL (1.5-8.5)
[2023-09-19 07:22] LABS: PLATELET COUNT, AUTOMATED 64 10^3/uL (150-450); WHITE BLOOD COUNT 0.9 10^3/uL (4.0-10.0)
[2023-09-19] MEDS: VANCOMYCIN HCL 750 MG, VIAL MATE ADAPTER 1 EACH in D5W 250 ML IV SCH (08:12)
[2023-09-19] MEDS: FUROSEMIDE 40 MG TAB PO SCH (08:17)
[2023-09-19] MEDS: GABAPENTIN 300 MG CAP PO SCH (08:17)
[2023-09-19] MEDS: allopurinoL 100 MG TAB PO SCH (08:18)
[2023-09-19] MEDS: VANCOMYCIN HCL 500 MG in D5W MINI-BAG PLUS 100 ML IV SCH (09:52)
[2023-09-19] MEDS: FILGRASTIM 480 MCG/0.8 ML SYRINGE **SC ADMINISTRATION ONLY SC SCH (11:31)
[2023-09-19] MEDS: ACETAMINOPHEN 500 MG TAB PO PRN (12:50)
[2023-09-19] MEDS: NS 500 ML IV ONE ×2 (15:22→17:41)
[2023-09-19] MEDS: SENOKOT S TAB PO PRN (17:09)
[2023-09-19] MEDS: DOXYCYCLINE HYCLATE 100MG TABLET PO SCH (17:41)
[2023-09-20] VITALS (30 sets, daily range): BP systolic 82–128; BP diastolic 51–65; TEMP 97.7–101.1; O2SAT 94–100
[2023-09-20 11:15] LABS: HEMATOCRIT 26.9 % (36.0-47.0); MEAN CORPUSCULAR HEMOGLOBIN 33.7 pg (27.0-33.0); MEAN CORPUSCULAR HGB CONC 33.5 g/dl (32.0-36.5); MEAN CORPUSCULAR VOLUME 100.7 fl (80.0-96.0); RED BLOOD COUNT 2.67 10^6/uL (4.00-5.40)
[2023-09-20 11:17] LABS: C REACTIVE PROTEIN QUANTITATIV 23.5 MG/DL (<1.0)
[2023-09-20 11:18] LABS: ALBUMIN 2.6 G/DL (3.2-5.2); BILIRUBIN,TOTAL 0.3 MG/DL (0.3-1.2); CALCIUM LEVEL 8.6 MG/DL (8.5-10.1); CREATININE FOR GFR 1.5 MG/DL (0.55-1.30); GLOMERULAR FILTRATION RATE 38.2 (>51); POTASSIUM SERUM 3.3 MMOL/L (3.5-5.1); TOTAL PROTEIN 5.5 G/DL (5.7-8.2)
[2023-09-20 11:21] LABS: URIC ACID 4.6 MG/DL (3.1-7.8)
[2023-09-20 11:24] LABS: PLATELET COUNT, AUTOMATED 42 10^3/uL (150-450); WHITE BLOOD COUNT 0.8 10^3/uL (4.0-10.0)
[2023-09-20 11:29] LABS: ERYTHROCYTE SEDIMENTATION RATE 86 mm/hr (0-30)
[2023-09-20] MEDS ORDERED: NS 1,000 ML IV SCH (13:30)
[2023-09-20] MEDS: POTASSIUM CHLORIDE 10MEQ SR TABLET PO SCH (13:50)
[2023-09-20] MEDS: NS 1,000 ML IV STA (13:50)
[2023-09-20] MEDS ORDERED: PROHANCE 279.3MG/ML 5ML VIAL As Ordered ONE (17:39)
[2023-09-20] MEDS ORDERED: PROHANCE 279.3MG/ML 15ML VIAL As Ordered ONE (17:39)
[2023-09-20] MEDS: MEROPENEM INJ 1 GM in IV 1 EA IV SCH (19:11)
[2023-09-21] VITALS (36 sets, daily range): BP systolic 74–144; BP diastolic 35–65; TEMP 96.8–99.1; O2SAT 94–100
[2023-09-21] MEDS: NS 1,000 ML IV ONE (01:00)
[2023-09-21 10:01] LABS: BASO % 0.9 % (0.0-1.0); EOS % 0.9 % (0.0-3.0); HEMATOCRIT 26.9 % (36.0-47.0); HEMOGLOBIN 8.8 g/dl (12.0-15.5); LYMPH # 0.8 10^3/uL (1.5-5.0); LYMPH % 66.4 % (24.0-44.0); MEAN CORPUSCULAR HEMOGLOBIN 33.7 pg (27.0-33.0); MEAN CORPUSCULAR HGB CONC 32.7 g/dl (32.0-36.5); MEAN CORPUSCULAR VOLUME 103.1 fl (80.0-96.0); MONO # 0.3 10^3/uL (0.0-0.8); MONO % 27.4 % (2.0-8.0); NEUTROPHILS % 3.5 % (36.0-66.0); RED BLOOD COUNT 2.61 10^6/uL (4.00-5.40); WHITE BLOOD COUNT 1.1 10^3/uL (4.0-10.0)
[2023-09-21 10:07] LABS: ALBUMIN 2.4 G/DL (3.2-5.2); BILIRUBIN,TOTAL 0.4 MG/DL (0.3-1.2); CALCIUM LEVEL 8.6 MG/DL (8.5-10.1); CREATININE FOR GFR 1.31 MG/DL (0.55-1.30); GLOMERULAR FILTRATION RATE 44.7 (>51); POTASSIUM SERUM 3.9 MMOL/L (3.5-5.1); TOTAL PROTEIN 5.6 G/DL (5.7-8.2)
[2023-09-21 10:16] LABS: PLATELET COUNT, AUTOMATED 38 10^3/uL (150-450)
[2023-09-21] MEDS: D5W/0.9% SODIUM CHLORIDE 1,000 ML IV SCH (13:11)
[2023-09-21] MEDS: oxyCODONE 5MG TAB PO PRN (16:04)
[2023-09-21] MEDS ORDERED: RIZATRIPTAN BENZOATE 10 MG TAB PO PRN (17:25)
[2023-09-21] MEDS: RIZATRIPTAN BENZOATE 10 MG TAB PO PRN (19:20)
[2023-09-21] MEDS: OMEPRAZOLE 20MG CAP PO SCH (21:42)
[2023-09-22 03:51] VITALS: BP 111/58; TEMP 98.9; O2SAT 95
[2023-09-22 08:05] VITALS: BP 101/58; TEMP 98.8; O2SAT 96
[2023-09-22 08:41] LABS: BASO % 0.6 % (0.0-1.0); HEMATOCRIT 24.9 % (36.0-47.0); HEMOGLOBIN 8.2 g/dl (12.0-15.5); LYMPH # 1.2 10^3/uL (1.5-5.0); LYMPH % 65.7 % (24.0-44.0); MEAN CORPUSCULAR HEMOGLOBIN 33.7 pg (27.0-33.0); MEAN CORPUSCULAR HGB CONC 32.9 g/dl (32.0-36.5); MEAN CORPUSCULAR VOLUME 102.5 fl (80.0-96.0); MONO # 0.6 10^3/uL (0.0-0.8); MONO % 32.6 % (2.0-8.0); NEUTROPHILS % 1.1 % (36.0-66.0); RED BLOOD COUNT 2.43 10^6/uL (4.00-5.40); WHITE BLOOD COUNT 1.8 10^3/uL (4.0-10.0)
[2023-09-22 08:53] LABS: PLATELET COUNT, AUTOMATED 33 10^3/uL (150-450)
[2023-09-22 09:08] LABS: ALBUMIN 2.3 G/DL (3.2-5.2); BILIRUBIN,TOTAL 0.4 MG/DL (0.3-1.2); CALCIUM LEVEL 8.6 MG/DL (8.5-10.1); CREATININE FOR GFR 1.16 MG/DL (0.55-1.30); GLOMERULAR FILTRATION RATE 51.4 (>51); MAGNESIUM LEVEL 1.6 MG/DL (1.8-2.4); POTASSIUM SERUM 3.5 MMOL/L (3.5-5.1); TOTAL PROTEIN 5.2 G/DL (5.7-8.2)
[2023-09-22] MEDS: ACETAMINOPHEN 500 MG TAB PO PRN (10:01)
[2023-09-22] MEDS: POTASSIUM CHLORIDE 10MEQ SR TABLET PO SCH (10:20)
[2023-09-22] MEDS: MAG SULF 1GM/100ML (MAG RUN) 1 GM in IV 1 EA IV SCH (12:19)
[2023-09-22 15:59] VITALS: BP 102/68; TEMP 97; O2SAT 98
[2023-09-22 19:58] VITALS: BP 130/60; TEMP 97.6; O2SAT 98
[2023-09-22] MEDS: GABAPENTIN 400MG CAP PO SCH (20:21)
[2023-09-23 04:00] VITALS: BP 105/53; TEMP 97.3; O2SAT 99
[2023-09-23 08:00] VITALS: BP 112/64; TEMP 97.8; O2SAT 99
[2023-09-23] MEDS ORDERED: MAGNESIUM SULFATE IN WATER 2 GM in IV 1 EA IV STA (10:20)
[2023-09-23 10:35] LABS: BASO % 0.4 % (0.0-1.0); EOS % 1.5 % (0.0-3.0); HEMATOCRIT 26.4 % (36.0-47.0); HEMOGLOBIN 8.7 g/dl (12.0-15.5); LYMPH # 1.5 10^3/uL (1.5-5.0); LYMPH % 56.1 % (24.0-44.0); MEAN CORPUSCULAR HEMOGLOBIN 33.9 pg (27.0-33.0); MEAN CORPUSCULAR VOLUME 102.7 fl (80.0-96.0); MONO # 1.1 10^3/uL (0.0-0.8); MONO % 39.8 % (2.0-8.0); NEUTROPHILS % 2.2 % (36.0-66.0); RED BLOOD COUNT 2.57 10^6/uL (4.00-5.40); WHITE BLOOD COUNT 2.6 10^3/uL (4.0-10.0)
[2023-09-23 10:37] LABS: NEUTROPHILS # 0.1 10^3/uL (1.5-8.5); PLATELET COUNT, AUTOMATED 36 10^3/uL (150-450)
[2023-09-23 10:44] LABS: ALBUMIN 2.7 G/DL (3.2-5.2); CALCIUM LEVEL 8.8 MG/DL (8.5-10.1); CREATININE FOR GFR 1.08 MG/DL (0.55-1.30); GLOMERULAR FILTRATION RATE 55.9 (>51); MAGNESIUM LEVEL 1.9 MG/DL (1.8-2.4); PHOSPHORUS LEVEL 2.8 MG/DL (2.5-4.9); POTASSIUM SERUM 4.1 MMOL/L (3.5-5.1)
[2023-09-23] MEDS: MAG SULF 1GM/100ML (MAG RUN) IV SCH (10:59)
[2023-09-23] MEDS: TOPIRAMATE (TopAMAX) 25 MG TAB PO SCH (11:04)
[2023-09-23 12:43] LABS: PROCALCITONIN 0.31 ng/ml
[2023-09-23 16:00] VITALS: BP 104/59; TEMP 96.6; O2SAT 99
[2023-09-23 16:08] LABS: BODY FLUID CULTURE Not indicated. (.); ORGANISM ID Not indicated. (.); SPECIMEN SOURCE Urine (.); URINE STREP PNEUMONIAE ANTIGEN Negative (Negative)
[2023-09-23 20:01] VITALS: BP 114/56; TEMP 97.2; O2SAT 99
[2023-09-24] VITALS (7 sets, daily range): BP systolic 113–141; BP diastolic 55–71; TEMP 97–97.9; O2SAT 94–98
[2023-09-24] MEDS: BENZONATATE 100MG CAPSULE PO ONE (05:15)
[2023-09-24 05:37] LABS: BASO % 0.5 % (0.0-1.0); EOS # 0.1 10^3/uL (0.0-0.5); EOS % 2.1 % (0.0-3.0); HEMATOCRIT 25.9 % (36.0-47.0); HEMOGLOBIN 8.2 g/dl (12.0-15.5); LYMPH # 1.9 10^3/uL (1.5-5.0); LYMPH % 50.1 % (24.0-44.0); MEAN CORPUSCULAR HEMOGLOBIN 33.2 pg (27.0-33.0); MEAN CORPUSCULAR HGB CONC 31.7 g/dl (32.0-36.5); MEAN CORPUSCULAR VOLUME 104.9 fl (80.0-96.0); MONO # 1.7 10^3/uL (0.0-0.8); MONO % 42.9 % (2.0-8.0); NEUTROPHILS % 4.1 % (36.0-66.0); RED BLOOD COUNT 2.47 10^6/uL (4.00-5.40); WHITE BLOOD COUNT 3.9 10^3/uL (4.0-10.0)
[2023-09-24 05:43] LABS: NEUTROPHILS # 0.2 10^3/uL (1.5-8.5); PLATELET COUNT, AUTOMATED 34 10^3/uL (150-450)
[2023-09-24] MEDS: ARTIFICIAL TEARS DROPS 15ML BTL (VISINE DRY RELIEF) OD PRN (06:02)
[2023-09-24 06:05] LABS: ALBUMIN 2.5 G/DL (3.2-5.2); BLOOD UREA NITROGEN 12 MG/DL (9-23); CALCIUM LEVEL 8.8 MG/DL (8.5-10.1); CARBON DIOXIDE LEVEL 23 MMOL/L (20-31); CHLORIDE LEVEL 115 MMOL/L (98-107); CREATININE FOR GFR 0.96 MG/DL (0.55-1.30); GLOMERULAR FILTRATION RATE > 60.0 (>51); GLUCOSE, FASTING 97 MG/DL (60-100); PHOSPHORUS LEVEL 2.6 MG/DL (2.5-4.9); POTASSIUM SERUM 4.4 MMOL/L (3.5-5.1); SODIUM LEVEL 146 MMOL/L (136-145)
[2023-09-24] MEDS: BENZONATATE 100MG CAPSULE PO PRN (10:09)
[2023-09-24] MEDS: guaiFENesin/CODEINE SYRUP 5 ML UDC PO PRN (11:44)
[2023-09-24] MEDS ORDERED: SIMETHICONE 80MG CHEW TAB PO PRN (12:20)
[2023-09-24] MEDS: DULoxetine 30MG CAPSULE (CYMBALTA) PO SCH (12:29)
[2023-09-24] MEDS ORDERED: traMADol 50 MG TAB PO PRN (13:05)
[2023-09-24] MEDS: ONDANSETRON 4MG 2ML VIAL IV PRN (15:47)
[2023-09-24] MEDS ORDERED: azaTHIOprine 10MG/ML SUSP *COMPOUNDED* 40ML BOTTLE PO SCH (16:00)
[2023-09-24] MEDS: LACTOBACILLUS ACIDOPHILUS CAP (BACID) PO SCH (17:11)
[2023-09-24] MEDS: ROSUVASTATIN 10 MG TAB (CRESTOR) PO SCH (21:12)
[2023-09-24] MEDS: traZODone 50 MG TAB PO SCH (21:12)
[2023-09-24] MEDS: BACTRIM 160MG/800MG DS TAB PO SCH (21:12)
[2023-09-25] VITALS (8 sets, daily range): BP systolic 110–142; BP diastolic 49–72; TEMP 97.5–98.2; O2SAT 69–98
[2023-09-25 06:36] LABS: HEMOGLOBIN 7.7 g/dl (12.0-15.5); MEAN CORPUSCULAR HEMOGLOBIN 33.5 pg (27.0-33.0); MEAN CORPUSCULAR HGB CONC 32.1 g/dl (32.0-36.5); MEAN CORPUSCULAR VOLUME 104.3 fl (80.0-96.0); WHITE BLOOD COUNT 6.7 10^3/uL (4.0-10.0)
[2023-09-25 06:53] LABS: PLATELET COUNT, AUTOMATED 61 10^3/uL (150-450)
[2023-09-25 07:09] LABS: ALBUMIN 2.6 G/DL (3.2-5.2); ALKALINE PHOSPHATASE 163 U/L (46-116); ALT/SGPT 28 U/L (7.0-40); AST/SGOT 24 U/L (<34); BILIRUBIN,TOTAL 0.5 MG/DL (0.3-1.2); BLOOD UREA NITROGEN 11 MG/DL (9-23); CALCIUM LEVEL 8.9 MG/DL (8.5-10.1); CARBON DIOXIDE LEVEL 26 MMOL/L (20-31); CHLORIDE LEVEL 111 MMOL/L (98-107); CREATININE FOR GFR 1.05 MG/DL (0.55-1.30); GLOMERULAR FILTRATION RATE 57.7 (>51); GLUCOSE, FASTING 92 MG/DL (60-100); POTASSIUM SERUM 4.4 MMOL/L (3.5-5.1); SODIUM LEVEL 143 MMOL/L (136-145); TOTAL PROTEIN 5.2 G/DL (5.7-8.2)
[2023-09-25 08:46] LABS: BASO % 0.3 % (0.0-1.0); EOS # 0.2 10^3/uL (0.0-0.5); EOS % 2.4 % (0.0-3.0); LYMPH # 2.4 10^3/uL (1.5-5.0); LYMPH % 34.7 % (24.0-44.0); MONO # 2.6 10^3/uL (0.0-0.8); MONO % 37.8 % (2.0-8.0); NEUTROPHILS # 1.5 10^3/uL (1.5-8.5); NEUTROPHILS % 22.3 % (36.0-66.0)
[2023-09-25 11:03] LABS: IRON (FE) 67 UG/DL (50-170); PERCENT SATURATION 25.9 % (13.2-45.0); TOTAL IRON BINDING CAPACITY 259 UG/DL (250-425)
[2023-09-25 11:10] LABS: VITAMIN B12 LEVEL > 2000 PG/ML (211-911)
[2023-09-26 08:52] LABS: BABESIA DUCANI WA1 IgG <1:256 TITER (<1:256)
[2023-09-26 12:09] LABS: BABESIA MICROTI PCR Negative (Negative); E CHAFFEENSIS IgG TITER Negative (Neg:<1:64); E CHAFFEENSIS IgM TITER Negative (Neg:<1:20); HUMAN GRANULCYTIC EHRLIC IgG Negative (Neg:<1:64); HUMAN GRANULCYTIC EHRLIC IgM Negative (Neg:<1:20)
== END 2023-09-25 18:41 | disposition home or self-care (01) | DRG 720 ==
LOC: M ED 21:19 → M ED INP 09-18 03:19 → M PCU 09-18 05:20 → M MSPAV 09-24 13:05
PROVIDERS: ADMIT Family Medicine; ATTEND Internal Medicine
PROC: 30233N1 Transfusion of Nonautologous Red Blood Cells into Peripheral Vein, Percutaneous Approach (ICD-10-PCS; principal; 2023-09-25)
DX: A41.9 Sepsis, unspecified organism (principal); M31.7 Microscopic polyangiitis; D61.818 Other pancytopenia; N17.9 Acute kidney failure, unspecified; D69.6 Thrombocytopenia, unspecified; I13.0 Hypertensive heart and chronic kidney disease with heart failure and stage 1 through stage 4 chronic kidney disease, or unspecified chronic kidney disease; R13.10 Dysphagia, unspecified; I50.32 Chronic diastolic (congestive) heart failure; N18.32 Chronic kidney disease, stage 3b; D70.9 Neutropenia, unspecified; K76.0 Fatty (change of) liver, not elsewhere classified; K21.9 Gastro-esophageal reflux disease without esophagitis; L92.9 Granulomatous disorder of the skin and subcutaneous tissue, unspecified; M06.9 Rheumatoid arthritis, unspecified; R50.81 Fever presenting with conditions classified elsewhere; G43.909 Migraine, unspecified, not intractable, without status migrainosus; M10.9 Gout, unspecified; Z88.0 Allergy status to penicillin; Z79.899 Other long term (current) drug therapy; E66.9 Obesity, unspecified; Z87.891 Personal history of nicotine dependence

== ENCOUNTER → 2023-09-30 | Outpatient (CLI) | payer BC ==
[~2023-09-30] MED LIST changes: +AZAT50TA37 PO; +BACT800T5 PO; +DULO30CA9 PO; +FARX1TAB5 PO; +FURO40TA2 PO; +GABA600T4 PO; +IBUP-1764 PO; +MULTCHW12 PO; +MYRB50TA PO; +PENC5CRE; +ROSU20TA61 PO; +TOPI-21 PO; +TURM1TAB PO; +UBRO100T PO; +VITA100018 PO
[2023-09-30 15:56] LABS: HEMOGLOBIN 10.9 g/dl (12.0-15.5); MEAN CORPUSCULAR HEMOGLOBIN 33.3 pg (27.0-33.0); MEAN CORPUSCULAR HGB CONC 32.1 g/dl (32.0-36.5); PLATELET COUNT, AUTOMATED 165 10^3/uL (150-450); RED BLOOD COUNT 3.27 10^6/uL (4.00-5.40); WHITE BLOOD COUNT 4.4 10^3/uL (4.0-10.0)
[2023-09-30 16:45] LABS: ANISOCYTOSIS 1+; ATYPICAL LYMPH 1 % (0-5); EOSINOPHILS 1 % (0-3); LYMPHOCYTES 65 % (16-44); MONOCYTES 12 % (0-5); NEUTROPHILS 20 % (28-66); PLATELET ESTIMATE NORMAL (NORMAL)
== END ==
LOC: M PLALAB 12:04
PROVIDERS: ATTEND Internal Medicine
DX: Z79.64 Long term (current) use of myelosuppressive agent (principal); D64.9 Anemia, unspecified

== ENCOUNTER → 2024-01-09 | Outpatient (CLI) | payer BC ==
[~2024-01-09] MED LIST changes: +ONDA-282; +ONDA-282 PO; -ONDA4TAB6; -ONDA4TAB6 PO
== END ==
LOC: M SOG 07:50
PROVIDERS: ATTEND Physician Assistant
DX: M79.641 Pain in right hand (principal); M25.531 Pain in right wrist; Z53.9 Procedure and treatment not carried out, unspecified reason

== ENCOUNTER → 2024-01-09 | Outpatient (CLI) | payer BC | LOC: M PLAIMG 08:46 | PROVIDERS: ATTEND Physician Assistant | DX: M25.531 Pain in right wrist (principal); M79.641 Pain in right hand ==

== ENCOUNTER → 2024-02-07 | Outpatient (CLI) | payer BC ==
[~2024-02-07] MED LIST changes: +GABA-1490 PO; -GABA600T4 PO
[2024-02-07 13:57] LABS: BLOOD UREA NITROGEN 11 MG/DL (9-23); CARBON DIOXIDE LEVEL 28 MMOL/L (20-31); CHLORIDE LEVEL 106 MMOL/L (98-107); CREATININE FOR GFR 0.78 MG/DL (0.55-1.30); GLOMERULAR FILTRATION RATE > 60.0 (>51); GLUCOSE, FASTING 124 MG/DL (60-100); PHOSPHORUS LEVEL 3.3 MG/DL (2.5-4.9); POTASSIUM SERUM 3.9 MMOL/L (3.5-5.1); SODIUM LEVEL 141 MMOL/L (136-145)
== END ==
LOC: M WUC 10:02
PROVIDERS: ATTEND Physician Assistant
DX: J06.9 Acute upper respiratory infection, unspecified (principal); U07.1 COVID-19

== ENCOUNTER → 2025-02-04 | Outpatient (CLI) | payer MEDICARE, BC ==
[~2025-02-04] MED LIST changes: +AMLO-319; +AMLO-319 PO; -AMLO-360; -AMLO-360 PO; +GABA-1172 PO; -GABA-282 PO; -NYST-13 TOP; +NYST0.1C TOP; -ROSU20TA61 PO; +ROSU20TA86 PO
[2025-02-04 17:57] LABS: BASO # 0.0 10^3/uL (0.0-0.2); BASO % 0.3 % (0.0-1.0); EOS # 0.1 10^3/uL (0.0-0.5); EOS % 0.7 % (0.0-3.0); LYMPH # 3.2 10^3/uL (1.5-5.0); LYMPH % 22.6 % (24.0-44.0); MONO # 1.0 10^3/uL (0.0-0.8); MONO % 7.2 % (2.0-8.0); NEUTROPHILS # 9.8 10^3/uL (1.5-8.5); NEUTROPHILS % 68.8 % (36.0-66.0); PLATELET COUNT, AUTOMATED 245 10^3/uL (150-450)
[2025-02-04 18:05] LABS: ERYTHROCYTE SEDIMENTATION RATE 93 mm/hr (0-30)
[2025-02-04 18:43] LABS: ALT/SGPT 18.0 U/L (7.0-40); AST/SGOT 22.0 U/L (<34); CALCIUM LEVEL 9.3 MG/DL (8.5-10.1); CARBON DIOXIDE LEVEL 26.0 MMOL/L (20-31); CHLORIDE LEVEL 101.0 MMOL/L (98-107); CREATININE FOR GFR 1.06 MG/DL (0.55-1.30); GLOMERULAR FILTRATION RATE 61.3 (>51); POTASSIUM SERUM 4.4 MMOL/L (3.5-5.1); SODIUM LEVEL 140.0 MMOL/L (136-145)
[2025-02-04 19:02] LABS: C REACTIVE PROTEIN QUANTITATIV 17.11 MG/DL (<1.0)
== END ==
LOC: M WUC 14:24
PROVIDERS: ATTEND Student in an Organized Health Care Education/Training Program
DX: R53.83 Other fatigue (principal)

== ENCOUNTER → 2025-02-17 | Outpatient (CLI) | payer MEDICARE, BC | LOC: M RAD 07:43 | PROVIDERS: ATTEND Internal Medicine Pulmonary Disease | DX: I25.10 Atherosclerotic heart disease of native coronary artery without angina pectoris (principal); R91.8 Other nonspecific abnormal finding of lung field ==

== ENCOUNTER → 2025-03-30 | Outpatient (CLI) | payer MEDICARE, BC | LOC: M PLARAD 13:20 | PROVIDERS: ATTEND Internal Medicine Pulmonary Disease | DX: R91.8 Other nonspecific abnormal finding of lung field (principal) | CPT/HCPCS: 78815; A9552 ==

== ENCOUNTER → 2025-04-20 | Outpatient (REF) | payer MEDICARE, BC | LOC: M LAB REF 14:57 | PROVIDERS: ATTEND Internal Medicine Pulmonary Disease | DX: R91.8 Other nonspecific abnormal finding of lung field (principal) ==

== ENCOUNTER → 2025-05-11 | Outpatient (CLI) | payer MEDICARE, BC | LOC: M RAD 13:59 | PROVIDERS: ATTEND Physician Assistant Medical | DX: J32.4 Chronic pansinusitis (principal) ==